=== PATIENT | male | born 1950 | race Hispanic/Latino ===

== ENCOUNTER 2021-06-14 07:43 | Emergency (ER) | payer MEDICARE ==
[~2021-06-14] VITALS: Ht 167.6 cm; Wt 68.0 kg
[2021-06-14] MEDS ORDERED: CASIRIVIMAB/IMDEVIMAB 10 ML in SODIUM CHLORIDE 0.9% 100 ML IV ONE (08:00)
== END 2021-06-14 09:07 | disposition home or self-care (01) ==
LOC: ER 08:11
DX: U07.1 COVID-19 (principal); I25.10 Atherosclerotic heart disease of native coronary artery without angina pectoris; Z95.1 Presence of aortocoronary bypass graft
CPT/HCPCS: 99283; J7050